=== PATIENT | female | born 1955 | race African-American/Black ===

== ENCOUNTER 2017-12-01 09:03 | Emergency (ER) | payer OTHER ==
[2017-12-01] MEDS: methylPREDNISolone SOD SUCC PF 125 MG/2 ML VIAL. IM (10:10)
[2017-12-01] MEDS: KETOROLAC 60 MG/2 ML INJ. IM (10:10)
== END 2017-12-01 10:12 | disposition home or self-care (01) ==
LOC: ER 09:03
DX: M25.511 Pain in right shoulder (principal); E78.00 Pure hypercholesterolemia, unspecified; I10 Essential (primary) hypertension; J45.909 Unspecified asthma, uncomplicated
CPT/HCPCS: 73030; 96372; 99284-25; J1885; J2930

== ENCOUNTER 2018-06-23 20:28 | Emergency (ER) | payer OTHER ==
[~2018-06-23] VITALS: Ht 160 cm; Wt 84.8 kg
[~2018-06-23 20:28] MED LIST: NAPR-514 PO
[2018-06-23 21:00] VITALS: BP 136/72
[2018-06-23] MEDS ORDERED: NAPROXEN 250 MG TABLET PO ONE (22:00)
[2018-06-23] MEDS ORDERED: HYDROcodone/APAP 5/325MG 1 TAB TABLET PO ONE (22:00)
[2018-06-23] MEDS ORDERED: NAPR-683 PO (22:15)
--- NOTE | 2018-06-23 22:16 | PHYS DOC ---
Past Medical History Past Medical History: Asthma, High Cholesterol, Hypertension Additional Past Medical Histor: HEART VALVE SURG JANUARY 2018 Past Surgical History: Other Additional Past Surgical Histo: LEFT ANKLE, RT WRIST Alcohol Use: None Drug Use: None Adult General Chief Complaint Chief Complaint: [facility] HPI Patient is a 62 year old female presents to the emergency department stating that she is having right shoulder pain and discomfort. She states that she woke up with pain and has been having increased pain and difficulty with range of motion. She's been taken Tylenol [id number] for the pain and discomfort with minimal relief. Patient states she has a history of tendinitis in the shoulder however she has not had problems with her for quite some time. Patient states that the last time she had problems with that she came to the emergency department and gave her a prescription for napr. Patient denies any numbness or tingling down to the finger she has full range of motion of the elbow wrist and hand. Peripheral pulses are 2+ cap refill brisk less than 2 seconds. Patient is right handed. Review of Systems Review of Systems Constitutional: Denies fever or chills [] Eyes: Denies change in visual acuity, redness, or eye pain [] HENT: Denies nasal congestion or sore throat [] Respiratory: Denies cough or shortness of breath [] Cardiovascular: No additional information not addressed in HPI [] GI: Denies abdominal pain, nausea, vomiting, bloody stools or diarrhea [] : Denies dysuria or hematuria [] Musculoskeletal: See history of present illness Integument: Denies rash or skin lesions [] Neurologic: Denies headache, focal weakness or sensory changes [] Endocrine: Denies polyuria or polydipsia [] All other systems were reviewed and found to be within normal limits, except as documented in this note. Current Medications Current Medications Current Medications Medications (Trade) Dose Ordered Sig/[place] Start Time Stop Time Status Last Admin Dose Admin Acetaminophen/ Hydrocodone Bitart (Lortab 5/325) 1 tab 1X ONCE 06/23/18 22:00 06/23/18 22:01 DC Naproxen (Naprosyn) 250 mg 1X ONCE 06/23/18 22:00 06/23/18 22:01 DC Allergies Allergies Allergies Coded Allergies Type Severity Reaction Last Updated Verified No Known Drug Allergies 12/01/17 No Physical Exam Physical Exam Constitutional: Well developed, well nourished, no acute distress, non-toxic appearance. [] HENT: Normocephalic, atraumatic, bilateral external ears normal, oropharynx moist, no oral exudates, nose normal. [] Eyes: PERRLA, EOMI, conjunctiva normal, no discharge. [] Neck: Normal range of motion, no tenderness, supple, no stridor. [] Cardiovascular:Heart rate regular rhythm, no murmur [] Lungs & Thorax: Bilateral breath sounds clear to auscultation [] Abdomen: Bowel sounds normal, soft, no tenderness, no masses, no pulsatile masses. [] Skin: Warm, dry, no erythema, no rash. [] Back: No tenderness, no CVA tenderness. [] Extremities: No tenderness, no cyanosis, no clubbing, ROM intact, no edema. [] Neurologic: Alert and oriented X 3, normal motor function, normal sensory function, no focal deficits noted. [] Psychologic: Affect normal, judgement normal, mood normal. [] Current Patient Data Vital Signs Vital Signs Date Time Temp Pulse Resp B/P (MAP) Pulse Ox O2 Delivery O2 Flow Rate FiO2 06/23/18 21:00 98.2 90 20 136/72 (93) 97 Room Air 98.2 EKG EKG [] Radiology/Procedures Radiology/Procedures [] Course & Med Decision Making Course & Med Decision Making Pertinent Labs and Imaging studies reviewed. (See chart for details) [] Dragon Disclaimer Dragon Disclaimer This electronic medical record was generated, in whole or in part, using a voice recognition dictation system. Departure Departure Impression: Primary Impression: Right shoulder pain Disposition: HOME, SELF-CARE Condition: STABLE Referrals: LOUIE LOPEZ MD (PCP) Patient Instructions: Shoulder Exercises, Generic, SportsMed, Shoulder Pain Additional Instructions: Take the medication as prescribed. Follow-up with your primary care provider for further evaluation and medication. If worsening return to the emergency department. Scripts Naproxen (NAPROSYN) 500 Mg Tablet 1 TAB PO BID, #60 TAB 1 Refill Prov: RADHA GIBBONS APRN 06/23/18 RADHA GIBBONS APRN Jun 23, 2018 22:16
== END 2018-06-23 22:30 | disposition home or self-care (01) ==
LOC: ER 20:28
DX: M25.511 Pain in right shoulder (principal); E78.00 Pure hypercholesterolemia, unspecified; J45.909 Unspecified asthma, uncomplicated; I10 Essential (primary) hypertension
CPT/HCPCS: 99283

== ENCOUNTER → 2020-11-09 | Outpatient (CLI) | payer MEDICARE, MEDICAID ==
[~2020-11-09] MED LIST changes: +NAPR-683 PO
--- NOTE | 2020-11-09 12:39 | RAD ---
PROCEDURE: XR KNEE 3 VIEWS_RT STUDY DATE: 11/09/2020 CLINICAL INDICATION / HISTORY: Reason: CONTUSION AND PAIN OF RIGHT KNEE. / Spl. Instructions: / Hist ory: . TECHNIQUE: AP, lateral, and oblique views of the right knee. COMPARISON: None FINDINGS: The osseous structures are intact. The articular surfaces are smooth. The joint space is narrowed in all 3 compartments but most conspicuously the lateral compartment.. The subchondral cysti c change is present in the lateral tibial plateau. No intra-articular loose bodies. The alignment is within normal limits. The soft tissues are unremarkable. No obvious joint effusion. No radio-op aque foreign bodies are identified. 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 Electronically signed by: Kia Leo MD (11/09/2020 12:37 PM) [id number]
== END ==
LOC: RAD 11:45
PROVIDERS: ATTEND Family Medicine
DX: M17.11 Unilateral primary osteoarthritis, right knee (principal)
CPT/HCPCS: 73562